=== PATIENT | female | born 1940 | race Caucasian/White ===

== ENCOUNTER 2017-09-14 07:11 | Observation (INO) | payer MEDICARE ==
[2017-09-14 07:38] LABS: #Eosinphils 0.1 thou/uL (0.0-0.7); #Lymphocytes 1.7 thou/uL (1.20-3.40); #Monocytes 0.3 thou/uL (0.11-0.59); #Neutrophils 4.5 thou/uL (1.40-6.50); %Basophils 0.6 % (0.0-1.0); %Eosinophils 1.9 % (0.0-10.0); %Lymphocytes 25.4 % (21.0-51.0); %Monocytes 4.5 % (0.0-10.0); %Neutrophils 67.7 % (42.0-75.0); Hemoglobin 13.9 g/dL (12.0-16.0); Mean Corpuscular Volume 90.8 fl (81.0-99.0); Mean Platelet Volume 7.8 fL (7.4-10.4); Platelet Count 243 thou/uL (130-400); RBC Distribution Width 12.3 % (11.5-14.5); Red Blood Cell (RBC) Count 4.65 mill/uL (4.20-5.40); White Blood Cell (WBC) Count 6.6 thou/uL (4.8-10.8)
[2017-09-14 08:02] LABS: ALT (SGPT) 13 U/L (8-55); AST (SGOT) 18 U/L (5-34); Albumin 4.4 g/dL (3.4-4.8); Alkaline Phosphatase 118 U/L (40-150); Anion Gap 11 mmol/L (10-20); BUN (Urea Nitrogen) 20 mg/dL (9.8-20.1); Bilirubin, Total 0.3 mg/dL (0.2-1.2); CK (CPK) 68 U/L (29-168); Calc. Creatinine Clearance 0 mL/min (70-130); Calcium 9.7 mg/dL (7.8-10.44); Carbon Dioxide 29 mmol/L (23-31); Chloride 104 mmol/L (98-107); Estimated GFR-MDRD 66; Glucose 137 mg/dL (83-110); Lipase 41 U/L (8-78); Potassium 4.1 mmol/L (3.5-5.1); Protein, Total 8.4 g/dL (6.0-8.3); Sodium 140 mmol/L (136-145)
[2017-09-14 08:04] LABS: CKMB 1.4 ng/mL (0-6.6); Troponin I Less than 0.010 ng/mL (< 0.028)
--- NOTE | 2017-09-14 08:20 | RAD ---
CHEST 1 VIEW: History Chest pain. COMPARISON: 11/30/16. FINDINGS: Cardiac silhouette is magnified by projection. Pulmonary vasculature is unremarkable. Mediastinum i s midline with aortic calcification. There is no lobar consolidation or evidence of pneumothorax. C ardiac monitor leads overlie the chest. IMPRESSION: 1. Atherosclerosis. 2. No active cardiopulmonary abnormalities are otherwise demonstrated. POS: [facility]
[2017-09-14 11:25] LABS: Troponin I 0.019 ng/mL (< 0.028)
[2017-09-14] MEDS ORDERED: Ondansetron HCl/PF 4 MG/2 ML Vial IVP PRN (12:31)
[2017-09-14] MEDS ORDERED: Ondansetron ODT 4 MG TAB SL PRN (12:31)
[2017-09-14] MEDS ORDERED: Acetaminophen 325 MG TAB PO PRN (12:31)
[2017-09-14] MEDS ORDERED: Lorazepam 0.5 MG TAB PO PRN (12:58)
[2017-09-14] MEDS ORDERED: ADENOSINE 60 MG/20 ML VIAL ONE (15:35)
[2017-09-14 16:54] LABS: Troponin I Less than 0.010 ng/mL (< 0.028)
--- NOTE | 2017-09-14 17:46 | NM ---
NUCLEAR MYOCARDIAL PERFUSION EVALUATION: Clinical history: Chest pain. 77-year-old female. Comparison: 11-19-16 FINDINGS: No significant fixed or reversible defects of the left ventricular sanford are seen. Gated imaging reve als wall motion and contractility. Calculated LVEF measures greater than 70%. IMPRESSION: 1. No scintigraphic evidence of ischemia or scarring. 2. Normal left ventricular systolic function. POS: [facility]
--- NOTE | 2017-09-14 20:21 | HP ---
CHIEF COMPLAINT: Chest pain and left-sided burning sensation. PRIMARY CARE PHYSICIAN: Dr. Kenneth Ray. HISTORY OF PRESENT ILLNESS: The patient is a very pleasant 77-year-old female with medical history of hypertension and thyroid cancer, status post thyroidectomy, who presented to the [facility] with complaints of left arm warm sensation and chest tightness. Patient stated that she woke up at 1:00 a.m. this morning to go to the bathroom noticed that her left arm did not feel right and she al so started having some chest tightness. She took an aspirin. She was a little bit nauseated and aft er a while, the chest tightness and the left arm discomfort resolved. The patient denies any numbnes s or tingling sensation on her left or the right hand or the face. She denies any weakness of the le ft arm or right arm or the face. The patient states that she has never had this sensation before. T he patient had some coffee last night, but she normally does not drink, which is what she contributed to the chest tightness or left arm discomfort, however, she wanted to come into the ER for further e valuation. PAST MEDICAL HISTORY: Hypertension. She has a history of thyroid cancer, status post thyroidectomy. She has anxiety and neuropathy. 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 She also has hypothyroidism due to parat hyroidectomy, and diverticulitis. PAST SURGICAL HISTORY: Thyroidectomy and breast biopsy. ALLERGIES: She is allergic to SULFA, but however, she states to me today that she is not allergic to SULFA. MEDICATIONS: Medications are as the following: Synthroid 88 mcg daily, clonidine 0.1 mg twice a day , atenolol 50 mg twice a day, lorazepam 1 p.o. b.i.d. p.r.n., lisinopril 20 mg b.i.d., Norvasc 10 mg daily, and gabapentin 100 mg at bedtime. REVIEW OF SYSTEMS: CONSTITUTIONAL: No fevers or chills, no night sweats, no weight loss. HEENT: No headaches, dizziness, visual changes, no sore throat, no rhinorrhea. PULMONARY: No hemoptysis. No cough, wheezing, or rhonchi. CARDIOVASCULAR: Positive for chest pressure and chest discomfort. GI: She has some nausea but denies any vomiting or diarrhea. : No problems urinating. EXTREMITIES: She had some burning sensation to her left upper extremity; however, currently, which h as resolved. PSYCHIATRIC: She currently has no anxiety or depression. FAMILY HISTORY: Significant for heart disease of the sister as well as cancer. Two siblings have th yroid disease and hypertension also runs in her family. SOCIAL HISTORY: She does not smoke, does not drink. She is and lives with her . PHYSICAL EXAMINATION. VITAL SIGNS: Blood pressure 160/70, respirations 16, 95% on room air, pulse 64, temperature 98.2. GENERAL: She is awake, alert, oriented x3, does not appear in distress. CARDIOVASCULAR: S1 and S2 present. No murmurs, rubs or gallops. LUNGS: Clear to auscultation. No rhonchi, wheezes noted. ABDOMEN: Soft, nontender. Bowel sounds are present x2. EXTREMITIES: No edema. NEUROLOGIC: Cranial nerves 2-11 intact. Lnukal-dx-ane and nqha-sw-ckcp intact, normal strength in b ilateral upper and lower extremities. LABORATORY DATA: White blood count 6.6, hemoglobin of 13.9, hematocrit of 42.2. 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 Troponins were negative. Sodium of 140, potassium of 4.1, chloride of 104, creatinine of 0.84, glucose of 137. LFTs were normal. The patient did have a chest x-ray, which did not show any acute process. EKG was normal. ASSESSMENT AND PLAN: The patient is a very pleasant 77-year-old female, who presents to the hospital with complaints of chest tightness and right-sided discomfort. 1. Chest pain. Given the patient's age, history of hypertension and being female, we will order a s tress test for patient. She did have a stress test back in 11/2016, which was normal. The patient d enied any weakness or tingling in her left or right upper extremity. She just felt she does have romulo e discomfort. We will also trend troponins x3, her first 2 were negative. EKG no acute process note d. 2. Hypothyroidism. We will continue her home medications. 3. Anxiety. We will continue her home medications. 4. Hypertension. We will continue her home medication.
[2017-09-14] MEDS ORDERED: Amlodipine 10 MG TAB PO SCH ×2 (21:00)
[2017-09-14] MEDS ORDERED: Lisinopril 20 MG TAB PO SCH (21:00)
[2017-09-14] MEDS ORDERED: cloNIDine 0.1 MG TAB PO SCH (21:00)
[2017-09-14] MEDS ORDERED: Gabapentin 100 MG CAP PO SCH ×2 (21:00)
[2017-09-14] MEDS ORDERED: Atenolol 50 MG TAB PO SCH ×2 (21:00)
[2017-09-14] MEDS: PATIENT'S HOME MEDICATION PO SCH (21:32)
[2017-09-14] MEDS: Lisinopril 20 MG TAB PO SCH (21:32)
[2017-09-14] MEDS: cloNIDine 0.1 MG TAB PO SCH (21:33)
--- NOTE | 2017-09-14 23:08 | ULT ---
CAROTID ULTRASOUND WITH MARTIN SCALE AND DOPPLER DUPLEX COLOR FLOW IMAGING SPECTRAL ANALYSIS PERFORMED: CLINICAL INDICATION: Syncope. FINDINGS: There is scattered mild atherosclerotic calcification of the carotid arteries. PEAK SYSTOLIC VELOCITY (CM/S): Right CCA 77 Left CCA 93 Right ICA 90 Left ICA 101 There is antegrade flow within the visualized bilateral vertebral arteries. IMPRESSION: 1. No hemodynamically significant stenosis of the right internal carotid artery. 2. No hemodynamically significant stenosis of the left internal carotid artery. POS: [facility]
[2017-09-15] MEDS ORDERED: Levothyroxine Sodium 88 MCG TAB PO SCH ×2 (06:00)
[2017-09-15 08:00] VITALS: BP 128/69; TEMP 97.5
[2017-09-15] MEDS: PATIENT'S HOME MEDICATION PO SCH (08:36)
[2017-09-15] MEDS: Lisinopril 20 MG TAB PO SCH (08:36)
[2017-09-15] MEDS: cloNIDine 0.1 MG TAB PO SCH (08:39)
--- NOTE | 2017-09-15 21:49 | DIS ---
DATE OF ADMISSION: 07/14/2018 DATE OF DISCHARGE: 07/15/2018 CHIEF COMPLAINT: Chest pain with left arm burning sensation. DISCHARGE DIAGNOSES: 1. Chest pain. 2. Hypertension. 3. Hypothyroidism. 4. 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 DISCHARGE MEDICATIONS: No new medication was added. She was asked to continue her home medication w hich included lisinopril 20 mg b.i.d., atenolol 50 mg b.i.d., clonidine 0.1 mg p.o. b.i.d., levothyro xine 88 mcg p.o. daily, gabapentin 100 mg at bedtime, aspirin 81 mg daily, Ativan 0.5 mg 1 p.o. b.i.d . p.r.n., and Norvasc 10 mg p.o. at bedtime. HOSPITAL COURSE: Patient is a very pleasant 77-year-old female who initially presented to the hospit al with complaints of chest tightness and left arm warmth. Her troponins were negative. EKG was neg ative. She underwent a cardiac perfusion stress test which was negative. The patient also underwent carotid Dopplers since her last Dopplers indicated 50-60% stenosis. Family wanted the Dopplers to b e done prior to discharge. Patient's carotid Dopplers indicated no hemodynamically significant steno sis in the right internal carotid artery or left internal carotid artery. 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 The patient was unaware of this. She states that she has been having ringing in th e ear for a long period of time which also has been causing her to have anxiety. She will follow up with ENT as an outpatient. Patient was stable upon discharge. PHYSICAL EXAMINATION: VITAL SIGNS: As followin.7, 62, 128/69, 16, 95% on room air. GENERAL: She is awake, alert, and oriented x3. CARDIOVASCULAR: S1, S2 present. No murmurs, rubs or gallops. ABDOMEN: Soft, nontender. Bowel sounds are present x2. LUNGS: Clear to auscultation. EXTREMITIES: No edema noted. The patient is going to be discharged home.
--- NOTE | 2017-09-20 18:04 | EKG ---
Test Reason : CHEST PAIN Blood Pressure : / mmHG Vent. Rate : 066 BPM Atrial Rate : 066 BPM P-R Int : 166 ms QRS Dur : 074 ms QT Int : 450 ms P-R-T Axes : 003 011 001 degrees QTc Int : 471 ms Normal sinus rhythm Normal ECG Confirmed by DAVID MARQUEZ, VERNA ([id number]), restaurant expeditor JENIFER FRIAS ([id number]) on 09/20/2017 6:03:25 PM Referred By: Confirmed By:VERNA HERNANDEZ MD
--- NOTE | 2017-09-23 13:27 | STRESS ---
Acquisition Time: 2017-09-14 14:49:49 Total Exercise Time: 00:04:00 Test Indications: CHEST PAIN Medications: Protocol: ADENOSINE Max HR: 091 BPM 64% of Pred: 142 BPM Max BP: 152/086 mmHG Max Work Load: 1.0 METS THE PATIENT WAS INJECTED WITH ADENOSINE. SHE DID NOT DEVELOP CHEST PAIN. THERE WAS NO SIGNIFICAN ST DEPRSSION. AWAIT NUCLEAR IMAGES FOR DEFINITIVE DIAGNOSIS. Confirmed by MONE PATEL ([id number]), medical editor OLIVE JOHNSTON ([id number]) on 09/23/2017 1:26:35 PM Referred By: MD Freddy OJEDA Confirmed By:MONE PATEL
== END 2017-09-15 11:27 | disposition home or self-care (01) ==
LOC: ERS 07:11 → 2SW 12:07
PROVIDERS: ADMIT Internal Medicine; ATTEND Internal Medicine
DX: R07.89 Other chest pain (principal); I10 Essential (primary) hypertension; E89.0 Postprocedural hypothyroidism; F41.9 Anxiety disorder, unspecified; G62.9 Polyneuropathy, unspecified; H93.8X2 Other specified disorders of left ear; I65.23 Occlusion and stenosis of bilateral carotid arteries; Z79.82 Long term (current) use of aspirin; Z79.899 Other long term (current) drug therapy; Z88.2 Allergy status to sulfonamides; Z98.890 Other specified postprocedural states; Z85.850 Personal history of malignant neoplasm of thyroid
CPT/HCPCS: 71045; 78452; 80053; 82550; 82553; 83690; 83880; 84484 ×2; 85025; 93005; 93017; 93880; 94760; 99285; A9500; G0378; 36415; J0153